=== PATIENT | male | born 1950 | race Caucasian/White ===

== ENCOUNTER 2019-04-02 05:48 | Inpatient (IN) ==
[2019-03-26 11:24] LABS: Basophils # 0.1 10*3/uL (0.0-0.2); Basophils % 0.7 % (0.0-0.8); Eosinophils # 0.1 10*3/uL (0.0-0.87); Eosinophils % 1.2 % (0.00-10.9); Hematocrit 42.8 VOL% (42.0-52.0); Hemoglobin 14.3 GM/DL (14.0-18.0); Immature Granulocytes % 0.3 %; Immature Granulocytes Absolute 0.03 #; Lymphocytes # 1.6 10*3/uL (1.4-4.0); Lymphocytes % 17.8 % (21.2-54.2); Mean Corpuscular HGB Conc 33.4 GM/DL (32-36); Mean Platelet Volume 9.4 FL (9.6-12.0); Monocytes % 5.7 % (1.7-12.7); Neutrophils % 74.3 % (38.7-73.9); Platelet Count 194 T/CUMM (130-400); Red Blood Count 4.65 MC/CUMM (3.8-5.5); Red Cell Distribution Width 13.4 % (9.3-17.3); White Blood Count 8.8 T/CUMM (4-12)
[2019-03-26 11:54] LABS: Calcium 9.1 MG/DL (8.5-10.1)
[2019-04-02] MEDS ORDERED: DIAZEPAM 5 MG TABLET PO ONE (06:00)
[2019-04-02] MEDS ORDERED: FAMOTIDINE 20 MG TABLET PO ONE (06:00)
[2019-04-02] MEDS ORDERED: DIAZEPAM 5 MG TABLET ONE (06:27)
[2019-04-02] MEDS ORDERED: FAMOTIDINE 20 MG TABLET ONE (06:28)
[2019-04-02] MEDS ORDERED: ERTAPENEM 1,000 MG VIAL ONE (06:28)
[2019-04-02] MEDS ORDERED: ALVIMOPAN 12 MG CAPSULE ONE (06:28)
[2019-04-02] MEDS ORDERED: ERTAPENEM 1,000 MG in SODIUM CHLORIDE 0.9% 100 ML IV ONE (06:30)
[2019-04-02] MEDS ORDERED: ALVIMOPAN 12 MG CAPSULE PO ONE (06:30)
[2019-04-02] MEDS ORDERED: BUPIVACAINE 0.5% 50 ML VIAL ONE (06:31)
[2019-04-02] MEDS ORDERED: DEXAMETHASONE 4 MG/1 ML VIAL ONE ×2 (06:31→13:32)
[2019-04-02] MEDS ORDERED: LIDOCAINE 100 MG/5 ML SYRINGE ONE ×2 (06:31→13:31)
[2019-04-02] MEDS ORDERED: EPINEPHrine 1 MG/ML VIAL ONE (06:31)
[2019-04-02] MEDS ORDERED: PHENYLEPHRINE DRIP 0 MG/0 ML PREMIX IV ONE (06:37)
[2019-04-02] MEDS ORDERED: HEPARIN/NACL 0.9% 2 UNITS/ML 500 ML IV ONE (06:37)
[2019-04-02] MEDS ORDERED: BUPIVACAINE 0.25% /EPI 10 ML VIAL ONE (06:40)
[2019-04-02] MEDS: LACTATED RINGERS 1,000 ML IV SCH ×4 (06:40→20:50)
[2019-04-02] MEDS ORDERED: INDOCYANINE GREEN 25 MG VIAL IV ONE (06:41)
[2019-04-02] MEDS ORDERED: LIDOCAINE MPF 1% /EPI 30 ML VIAL ONE (06:41)
[2019-04-02] MEDS ORDERED: TISSUE ADHESIVE 1 EACH APPLICATOR TOP ONE (06:41)
[2019-04-02] MEDS ORDERED: ONDANSETRON 4 MG/2 ML VIAL IV PRN (12:23)
[2019-04-02] MEDS ORDERED: HYDROmorphone 2 MG/1 ML VIAL IV PRN (12:23)
[2019-04-02 12:51] LABS: Basophils # 0.1 10*3/uL (0.0-0.2); Basophils % 0.4 % (0.0-0.8); Eosinophils % 0.2 % (0.00-10.9); Hemoglobin 14.5 GM/DL (14.0-18.0); Immature Granulocytes % 0.4 %; Immature Granulocytes Absolute 0.05 #; Lymphocytes # 0.6 10*3/uL (1.4-4.0); Lymphocytes % 4.6 % (21.2-54.2); Mean Corpuscular Volume 92.6 FL (87-102); Mean Platelet Volume 9.7 FL (9.6-12.0); Neutrophils % 90.4 % (38.7-73.9); Platelet Count 167 T/CUMM (130-400); Red Blood Count 4.75 MC/CUMM (3.8-5.5); Red Cell Distribution Width 13.2 % (9.3-17.3); White Blood Count 13.6 T/CUMM (4-12)
[2019-04-02 13:12] LABS: Calcium 8.9 MG/DL (8.5-10.1); Osmolality,Calculated 281.8 MOS/KG (273-304)
[2019-04-02 13:14] LABS: Anisocytosis 1+; Band Neutrophils 17 % (0-10); Lymphocytes 5 % (20-55); Platelet Estimate Normal; Segmented Neutrophils 71 % (50-85); Smudge Cells Few; Total Cells Counted 100
[2019-04-02 13:15] LABS: Macrocytosis 1+
[2019-04-02] MEDS: TAMSULOSIN 0.4 MG CAPSULE PO SCH ×2 (13:28→20:51)
[2019-04-02] MEDS ORDERED: fentaNYL 100 MCG/2 ML VIAL ONE (13:31)
[2019-04-02] MEDS ORDERED: PROPOFOL 200 MG/20 ML VIAL IV ONE (13:31)
[2019-04-02] MEDS ORDERED: MIDAZOLAM 2 MG/2 ML VIAL ONE (13:31)
[2019-04-02] MEDS ORDERED: DESFLURANE 1 UNIT/15 MINUTE INH ONE (13:31)
[2019-04-02] MEDS ORDERED: LACTATED RINGERS 1,000 ML IV ONE (13:32)
[2019-04-02] MEDS ORDERED: NEOSTIGMINE 10 MG/10 ML VIAL ONE (13:32)
[2019-04-02] MEDS ORDERED: ETOMIDATE 40 MG/20 ML VIAL IV ONE (13:32)
[2019-04-02] MEDS ORDERED: ROCURONIUM 100 MG/10 ML VIAL IV ONE (13:32)
[2019-04-02] MEDS ORDERED: KETOROLAC 30 MG/1 ML VIAL ONE (13:32)
[2019-04-02] MEDS ORDERED: GLYCOPYRROLATE 0.4 MG/2 ML VIAL ONE (13:32)
[2019-04-02] MEDS: KETOROLAC 15 MG/1 ML VIAL IV SCH ×2 (13:48→18:25)
[2019-04-02] MEDS ORDERED: hydrALAZINE 20 MG/1 ML VIAL IV PRN (14:45)
[2019-04-02] MEDS: ALVIMOPAN 12 MG CAPSULE PO SCH (20:51)
[2019-04-02] MEDS ORDERED: CARVEDILOL 12.5 MG TABLET PO SCH (21:00)
[2019-04-02] MEDS ORDERED: diphenhydrAMINE CAP 25 MG CAPSULE PO SCH (21:00)
[2019-04-02] MEDS ORDERED: SIMVASTATIN 20 MG TABLET PO SCH (21:00)
[2019-04-03] MEDS: KETOROLAC 15 MG/1 ML VIAL IV SCH ×2 (00:56→06:51)
[2019-04-03 04:40] LABS: Basophils % 0.2 % (0.0-0.8); Hematocrit 42.2 VOL% (42.0-52.0); Hemoglobin 13.7 GM/DL (14.0-18.0); Immature Granulocytes % 0.7 %; Mean Corpuscular HGB Conc 32.5 GM/DL (32-36); Mean Platelet Volume 9.9 FL (9.6-12.0); Neutrophils % 87.1 % (38.7-73.9); Platelet Count 172 T/CUMM (130-400); Red Blood Count 4.54 MC/CUMM (3.8-5.5); Red Cell Distribution Width 13.2 % (9.3-17.3); White Blood Count 13.7 T/CUMM (4-12)
[2019-04-03 05:09] LABS: Calcium 9.5 MG/DL (8.5-10.1); Osmolality,Calculated 285.4 MOS/KG (273-304)
[2019-04-03] MEDS ORDERED: ENOXAPARIN 40 MG/0.4 ML SYRINGE SUBCUT SCH (06:00)
[2019-04-03 06:19] LABS: Lymphocytes 5 % (20-55); Platelet Estimate Adequate; Segmented Neutrophils 90 % (50-85); Total Cells Counted 100
[2019-04-03 06:20] LABS: Hypochromasia 1+; Macrocytosis Slight
[2019-04-03] MEDS ORDERED: LEVOTHYROXINE 100 MCG TABLET PO SCH (06:30)
[2019-04-03] MEDS: LACTATED RINGERS 1,000 ML IV SCH (06:50)
[2019-04-03 07:33] VITALS: BP 160/75
[2019-04-03] MEDS: TAMSULOSIN 0.4 MG CAPSULE PO SCH (08:17)
[2019-04-03] MEDS: ALVIMOPAN 12 MG CAPSULE PO SCH (08:17)
[2019-04-03] MEDS ORDERED: LISINOPRIL 10 MG TABLET PO SCH (09:00)
[2019-04-03] MEDS ORDERED: PANTOPRAZOLE 40 MG TABLET PO SCH (09:00)
[2019-04-03] MEDS ORDERED: DIGOXIN 0.25 MG TABLET PO SCH (09:00)
[2019-04-03] MEDS ORDERED: CARVEDILOL 6.25 MG TABLET PO SCH (09:00)
[2019-04-03] MEDS ORDERED: DILTIAZEM CD 120 MG CAPSULE PO SCH (09:00)
[2019-04-03] MEDS ORDERED: POTASSIUM CHLORIDE 20 MEQ TABLET PO SCH (09:00)
[2019-04-03] MEDS ORDERED: FUROSEMIDE 40 MG TABLET PO SCH (16:00)
== END 2019-04-03 11:00 | disposition home or self-care (01) | DRG 331 ==
LOC: N.OR 05:48 → N.SDSINP 05:48 → EDSTATUS 07:30 → EDSDCBED 12:08 → N.SDSINP 12:08 → N.3E 12:08 → N.OR 04-03 11:00 → UNDODEPSDC 04-04 10:44
PROVIDERS: ADMIT Surgery; ATTEND Surgery

== ENCOUNTER 2020-04-06 06:36 | Inpatient (IN) ==
[2020-03-31 11:40] LABS: Basophils # 0.1 10*3/uL (0.0-0.2); Basophils % 0.7 % (0.0-0.8); Eosinophils # 0.1 10*3/uL (0.0-0.87); Eosinophils % 1.7 % (0.00-10.9); Hematocrit 42.3 VOL% (42.0-52.0); Hemoglobin 14.1 GM/DL (14.0-18.0); Immature Granulocytes % 0.5 %; Immature Granulocytes Absolute 0.04 #; Lymphocytes # 1.5 10*3/uL (1.4-4.0); Lymphocytes % 18.2 % (21.2-54.2); Mean Corpuscular HGB Conc 33.3 GM/DL (32-36); Mean Corpuscular Volume 94.2 FL (87-102); Mean Platelet Volume 9.6 FL (9.6-12.0); Monocytes % 5.6 % (1.7-12.7); Neutrophils % 73.3 % (38.7-73.9); Platelet Count 229 T/CUMM (130-400); Red Blood Count 4.49 MC/CUMM (3.8-5.5); Red Cell Distribution Width 13.1 % (9.3-17.3); White Blood Count 8.4 T/CUMM (4-12)
[2020-03-31 12:21] LABS: Bilirubin,Total 1.2 MG/DL (0.2-1.0); Calcium 9.4 MG/DL (8.5-10.1); Osmolality,Calculated 278.8 MOS/KG (273-304); Total Protein 7.6 G/DL (6.4-8.3)
[~2020-04-06 06:36] MED LIST: ceFAZolin 2,000 MG in PREMIX 1 EACH IV ONE
[2020-04-06] MEDS ORDERED: LACTATED RINGERS 1,000 ML IV SCH (07:00)
[2020-04-06] MEDS ORDERED: FAMOTIDINE 20 MG TABLET PO ONE (07:14)
[2020-04-06] MEDS ORDERED: FAMOTIDINE 20 MG TABLET ONE (07:27)
[2020-04-06] MEDS ORDERED: TISSUE ADHESIVE 1 EACH APPLICATOR TOP ONE (07:54)
[2020-04-06] MEDS ORDERED: LIDOCAINE 1% 20 ML VIAL ONE (07:54)
[2020-04-06] MEDS ORDERED: HEPARIN 5,000 UNIT/1 ML VIAL ONE (07:54)
[2020-04-06] MEDS ORDERED: LIDOCAINE 1% 5 ML VIAL ONE (08:30)
[2020-04-06] MEDS ORDERED: BUPIVACAINE MPF 0.5% /EPI 30 ML VIAL ONE (08:30)
[2020-04-06] MEDS ORDERED: DEXMEDETOMIDINE 200 MCG/2 ML VIAL ONE (08:31)
[2020-04-06] MEDS ORDERED: DEXTROSE 50% 25 GM/50 ML VIAL IV PRN (11:29)
[2020-04-06] MEDS ORDERED: PROMETHAZINE 25 MG/1 ML VIAL IM PRN (11:29)
[2020-04-06] MEDS ORDERED: NALOXONE 0.4 MG/ML VIAL IV PRN (11:29)
[2020-04-06] MEDS ORDERED: ONDANSETRON 4 MG/2 ML VIAL IV PRN (11:29)
[2020-04-06] MEDS ORDERED: HYDROmorphone 2 MG/1 ML VIAL IV PRN ×3 (11:29→11:58)
[2020-04-06] MEDS ORDERED: oxyCODONE/ACETAMINOPHEN 5-325 MG TABLET PO PRN ×2 (11:29)
[2020-04-06] MEDS ORDERED: GLUCAGON 1 MG VIAL IM PRN (11:29)
[2020-04-06] MEDS ORDERED: MEPERIDINE 25 MG/1 ML VIAL ONE (11:36)
[2020-04-06] MEDS ORDERED: MEPERIDINE 25 MG/1 ML VIAL IV PRN (11:58)
[2020-04-06] MEDS: LACTATED RINGERS 1,000 ML IV SCH ×2 (12:08→22:27)
[2020-04-06] MEDS ORDERED: fentaNYL 100 MCG/2 ML VIAL ONE (13:04)
[2020-04-06] MEDS ORDERED: SEVOFLURANE 1 UNIT/15 MINUTE INH ONE (13:04)
[2020-04-06] MEDS ORDERED: ONDANSETRON 4 MG/2 ML VIAL ONE (13:04)
[2020-04-06] MEDS ORDERED: DESFLURANE 1 UNIT/15 MINUTE INH ONE (13:04)
[2020-04-06] MEDS ORDERED: HEPARIN 10,000 UNIT/10 ML VIAL ONE (13:04)
[2020-04-06] MEDS ORDERED: LIDOCAINE 2% 5 ML VIAL ONE (13:04)
[2020-04-06] MEDS ORDERED: propofoL 200 MG/20 ML VIAL IV ONE (13:04)
[2020-04-06] MEDS ORDERED: GLYCOPYRROLATE 0.4 MG/2 ML VIAL ONE (13:05)
[2020-04-06] MEDS ORDERED: PROTAMINE SULFATE 50 MG/5 ML VIAL IV ONE (13:05)
[2020-04-06] MEDS ORDERED: NEOSTIGMINE 10 MG/10 ML VIAL ONE (13:05)
[2020-04-06] MEDS ORDERED: ROCURONIUM 100 MG/10 ML VIAL IV ONE (13:05)
[2020-04-06] MEDS ORDERED: ETOMIDATE 40 MG/20 ML VIAL IV ONE (13:05)
[2020-04-06] MEDS: INSULIN REGULAR 100 UNIT/ML SUBCUT SCH ×3 (13:18→21:27)
[2020-04-06] MEDS: PHENYLEPHRINE DRIP 40 MG/250 ML PREMIX IV SCH (13:19)
[2020-04-06] MEDS: NITROPRUSSIDE 100 MG in DEXTROSE 5% 250 ML IV SCH ×2 (13:19→14:32)
[2020-04-06] MEDS ORDERED: NITROPRUSSIDE 50 MG/2 ML VIAL ONE (14:26)
[2020-04-06] MEDS: diphenhydrAMINE CAP 25 MG CAPSULE PO SCH ×2 (21:17→22:24)
[2020-04-06] MEDS: TAMSULOSIN 0.4 MG CAPSULE PO SCH ×2 (21:17→22:24)
[2020-04-06] MEDS: FUROSEMIDE 40 MG TABLET PO SCH ×2 (21:17→22:24)
[2020-04-06] MEDS: carvediloL 12.5 MG TABLET PO SCH (21:18)
[2020-04-06] MEDS: SIMVASTATIN 20 MG TABLET PO SCH ×2 (21:18→22:24)
[2020-04-07] MEDS: LEVOTHYROXINE 100 MCG TABLET PO SCH (06:08)
[2020-04-07] MEDS: INSULIN REGULAR 100 UNIT/ML SUBCUT SCH ×4 (08:02→21:16)
[2020-04-07] MEDS ORDERED: lisinopriL 10 MG TABLET PO SCH (09:00)
[2020-04-07] MEDS ORDERED: CLOPIDOGREL 75 MG TABLET PO SCH (09:00)
[2020-04-07] MEDS: DIGOXIN 0.25 MG TABLET PO SCH (09:08)
[2020-04-07] MEDS: OMEPRAZOLE ODT 20 MG TABLET PO SCH (09:08)
[2020-04-07] MEDS: POTASSIUM CHLORIDE 20 MEQ TABLET PO SCH (09:09)
[2020-04-07] MEDS: FUROSEMIDE 40 MG TABLET PO SCH ×2 (09:09→20:33)
[2020-04-07] MEDS: DILTIAZEM CD 240 MG CAPSULE PO SCH (09:09)
[2020-04-07] MEDS: FENOFIBRATE 145 MG TABLET PO SCH (09:09)
[2020-04-07] MEDS: CLOPIDOGREL 75 MG TABLET PO SCH (09:10)
[2020-04-07] MEDS: carvediloL 12.5 MG TABLET PO SCH (09:10)
[2020-04-07] MEDS: ASPIRIN EC 81 MG TABLET PO SCH (09:10)
[2020-04-07] MEDS: TAMSULOSIN 0.4 MG CAPSULE PO SCH ×2 (09:10→20:33)
[2020-04-07] MEDS: LACTATED RINGERS 1,000 ML IV SCH ×2 (09:11→21:13)
[2020-04-07] MEDS ORDERED: METOPROLOL TARTRATE 5 MG/5 ML VIAL IV ONE ×3 (11:34→15:52)
[2020-04-07] MEDS ORDERED: carvediloL 25 MG TABLET PO SCH (11:36)
[2020-04-07] MEDS: PHENYLEPHRINE DRIP 40 MG/250 ML PREMIX IV SCH (11:42)
[2020-04-07] MEDS: NITROPRUSSIDE 100 MG in DEXTROSE 5% 250 ML IV SCH (11:43)
[2020-04-07] MEDS ORDERED: hydrALAZINE 20 MG/1 ML VIAL IV PRN (15:13)
[2020-04-07] MEDS: cloNIDine 0.1 MG TABLET PO PRN ×2 (17:27→18:41)
[2020-04-07] MEDS ORDERED: hydrALAZINE 20 MG/1 ML VIAL ONE (20:29)
[2020-04-07] MEDS: SIMVASTATIN 20 MG TABLET PO SCH (20:33)
[2020-04-07] MEDS: diphenhydrAMINE CAP 25 MG CAPSULE PO SCH (20:33)
[2020-04-07] MEDS: APIXABAN 5 MG TABLET PO SCH (21:15)
[2020-04-07] MEDS: metFORMIN 500 MG TABLET PO SCH (21:16)
[2020-04-07] MEDS: INSULIN GLARGINE 100 UNIT/ML SUBCUT SCH (21:16)
[2020-04-08] MEDS: LEVOTHYROXINE 100 MCG TABLET PO SCH (06:06)
[2020-04-08] MEDS: INSULIN REGULAR 100 UNIT/ML SUBCUT SCH ×4 (07:35→22:03)
[2020-04-08] MEDS ORDERED: carvediloL 12.5 MG TABLET PO SCH (09:00)
[2020-04-08] MEDS: FENOFIBRATE 145 MG TABLET PO SCH (09:26)
[2020-04-08] MEDS: metFORMIN 500 MG TABLET PO SCH ×2 (09:26→22:05)
[2020-04-08] MEDS: DIGOXIN 0.25 MG TABLET PO SCH (09:26)
[2020-04-08] MEDS: DILTIAZEM CD 240 MG CAPSULE PO SCH (09:27)
[2020-04-08] MEDS: FUROSEMIDE 40 MG TABLET PO SCH ×2 (09:27→22:04)
[2020-04-08] MEDS: TAMSULOSIN 0.4 MG CAPSULE PO SCH ×2 (09:27→22:04)
[2020-04-08] MEDS: POTASSIUM CHLORIDE 20 MEQ TABLET PO SCH (09:27)
[2020-04-08] MEDS: CLOPIDOGREL 75 MG TABLET PO SCH (09:28)
[2020-04-08] MEDS: OMEPRAZOLE ODT 20 MG TABLET PO SCH (09:29)
[2020-04-08] MEDS: APIXABAN 5 MG TABLET PO SCH ×2 (09:29→22:04)
[2020-04-08] MEDS: lisinopriL 20 MG TABLET PO SCH (09:29)
[2020-04-08] MEDS: ASPIRIN EC 81 MG TABLET PO SCH (09:29)
[2020-04-08] MEDS: NITROPRUSSIDE 100 MG in DEXTROSE 5% 250 ML IV SCH (11:01)
[2020-04-08] MEDS: INSULIN GLARGINE 100 UNIT/ML SUBCUT SCH (22:04)
[2020-04-08] MEDS: diphenhydrAMINE CAP 25 MG CAPSULE PO SCH (22:04)
[2020-04-08] MEDS: SIMVASTATIN 20 MG TABLET PO SCH (22:05)
[2020-04-09] MEDS: LEVOTHYROXINE 100 MCG TABLET PO SCH (06:25)
[2020-04-09] MEDS ORDERED: DILTIAZEM CD 240 MG CAPSULE PO SCH (07:53)
[2020-04-09] MEDS ORDERED: hydrALAZINE 10 MG TABLET PO SCH (09:00)
[2020-04-09] MEDS: APIXABAN 5 MG TABLET PO SCH (09:11)
[2020-04-09] MEDS: ASPIRIN EC 81 MG TABLET PO SCH (09:11)
[2020-04-09] MEDS: TAMSULOSIN 0.4 MG CAPSULE PO SCH (09:12)
[2020-04-09] MEDS: FUROSEMIDE 40 MG TABLET PO SCH (09:12)
[2020-04-09] MEDS: POTASSIUM CHLORIDE 20 MEQ TABLET PO SCH (09:12)
[2020-04-09] MEDS: CLOPIDOGREL 75 MG TABLET PO SCH (09:12)
[2020-04-09] MEDS: metFORMIN 500 MG TABLET PO SCH (09:12)
[2020-04-09] MEDS: OMEPRAZOLE ODT 20 MG TABLET PO SCH (09:12)
[2020-04-09] MEDS: lisinopriL 20 MG TABLET PO SCH (09:12)
[2020-04-09] MEDS: FENOFIBRATE 145 MG TABLET PO SCH (09:13)
[2020-04-09] MEDS: INSULIN REGULAR 100 UNIT/ML SUBCUT SCH (09:32)
[2020-04-09 11:51] VITALS: BP 125/61
== END 2020-04-09 12:24 | disposition home or self-care (01) | DRG 38 ==
LOC: N.SDSINP 06:36 → N.ICU 11:59 → N.TELES 04-08 17:29
PROVIDERS: ADMIT Surgery; ATTEND Surgery